=== PATIENT | male | born 1985 | race Caucasian/White ===

== ENCOUNTER → 2021-01-10 | Outpatient (CLI) | payer BC ==
--- NOTE | 2021-01-10 12:09 | CT ---
EXAMINATION TYPE: CT abdomen pelvis wo con DATE OF EXAM: 01/10/2021 HISTORY: Calculus of kidney and ureter, left greater than right flank pain. CT DLP: 1158.3 mGycm. Automated Exposure Control for Dose Reduction was Utilized. TECHNIQUE: CT scan of the abdomen and pelvis is performed without oral or IV contrast. COMPARISON: Prior CT March 29, 2015 FINDINGS: Within the limitations of a non-contrast study, the following observations are made. LUNG BASES: Posterior medial right basilar focal linear scarring is redemonstrated. LIVER/GB: Liver is diffusely low dense consistent with diffuse fatty infiltration. PANCREAS: No significant abnormality is seen. SPLEEN: No significant abnormality is seen. ADRENALS: No significant abnormality is seen. KIDNEYS: There are 3 lower pole right renal calculi measuring up to 10 mm in size coronal image 56. L ower pole calculi within the lower pole collecting system. Mild pelvic fullness without hydroureter o r obstructing calculus. There are approximately 5 left renal calculi measuring up to 5 mm in size coronal image 65. There is mild left-sided hydronephrosis due to obstructing 7 mm calculus distal left ureter coronal image 63. There is simple appearing 3.7 cm thin-walled cyst medially midpole level left kidney increased in siz e from prior. No intraluminal calculus in the poorly distended bladder BOWEL: Slightly redundant sigmoid colon. Normal-appearing appendix from the cecum. GENITAL ORGANS: No gross abnormality seen. LYMPH NODES: No greater than 1cm abdominal or pelvic lymph nodes are appreciated. OSSEOUS STRUCTURES: No significant abnormality is seen. OTHER: Moderate size fat-containing umbilical hernia is redemonstrated. Stable small to moderate-size d fat-containing left inguinal hernia. IMPRESSION: 1. Bilateral nephrolithiasis redemonstrated. Interval increase in number of calculi from 2016 CT. The re is mild left-sided hydronephrosis currently due to 7 mm obstructing distal ureter calculus. There is now 10 mm calculus in the right kidney lower pole collecting system. Advised urology referral to [facility] evaluate and treat.
== END | disposition home or self-care (01) ==
LOC: RADCTMAIN 11:11
PROVIDERS: ATTEND Family Medicine
DX: N13.2 Hydronephrosis with renal and ureteral calculous obstruction (principal)
CPT/HCPCS: 74176

== ENCOUNTER → 2021-01-14 | Outpatient (CLI) | payer BC ==
[2021-01-14 16:03] LABS: African American GFR (CKD) >90 (>60 ml/min/1.73 sqM); Anion Gap 13 mmol/L; Blood Urea Nitrogen 12 mg/dL (9-20); Calcium 9.8 mg/dL (8.4-10.2); Carbon Dioxide 26 mmol/L (22-30); Chloride 99 mmol/L (98-107); Glucose 93 mg/dL (74-99); Non-African American GFR(CKD) >90 (>60 ml/min/1.73 sqM); Potassium 4.2 mmol/L (3.5-5.1); Sodium 138 mmol/L (137-145)
[2021-01-14 18:28] LABS: Basophils # (A) 0.1 k/uL (0-0.2); Basophils % (A) 1 %; Eosinophils # (A) 0.3 k/uL (0-0.7); Eosinophils % (A) 3 %; HCT 47.2 % (39.0-53.0); Lymphocytes # (A) 2.5 k/uL (1.0-4.8); Lymphocytes % (A) 32 %; MCV 85.3 fL (80.0-100.0); Mean Platelet Volume 6.9; Monocytes # (A) 0.5 k/uL (0-1.0); Monocytes % (A) 6 %; Neutrophils # (A) 4.3 k/uL (1.3-7.7); Neutrophils % (A) 56 %; Platelet Count 316 k/uL (150-450); RBC 5.53 m/uL (4.30-5.90); RDW 13.2 % (11.5-15.5); WBC 7.8 k/uL (3.8-10.6)
== END | disposition home or self-care (01) ==
LOC: LABPAT 14:28
PROVIDERS: ATTEND Urology
DX: Z01.812 Encounter for preprocedural laboratory examination (principal); N20.1 Calculus of ureter; N20.0 Calculus of kidney
CPT/HCPCS: 36415; 80048; 85025

== ENCOUNTER 2021-01-20 09:17 | Day surgery (SDC) | payer BC ==
--- NOTE | 2021-01-19 07:09 | P.GSHP ---
History of Present Illness H&P Date: 01/19/21 Chief Complaint: Flank pain The patient is a 35-year-old white male with a history of urolithiasis. He underwent right ESWL in 2011, and has undergone bilateral ureteroscopy with laser lithotripsy. His calculi are composed of calcium oxalate. He now presents with bilateral flank pain. A CT scan shows mild left hydronephrosis due to a 7 mm left distal ureteral calculus. He also has 5 left renal calculi measuring up to 5 mm, and 3 right renal calculi measuring up to 1 cm. Alternative treatment options were reviewed, and he has elected to undergo ureteroscopic removal of his calculi. His serum calcium level is normal. It does not appear he has undergone a formal metabolic evaluation in the past. - Constitutional Constitutional: Denies chills, Denies fever - Gastrointestinal Gastrointestinal: Reports nausea - Genitourinary (Male) Genitourinary: Reports flank pain, Reports hematuria, Reports kidney stones Past Medical History Past Medical History: Hyperlipidemia Additional Past Medical History / Comment(s): hx kidney stones History of Any Multi-Drug Resistant Organisms: None Reported Additional Past Surgical History / Comment(s): lithitripsy x2, ureteroscopy with laser lithotripsy Past Anesthesia/Blood Transfusion Reactions: No Reported Reaction Past Psychological History: No Psychological Hx Reported Past Alcohol Use History: Occasional Past Drug Use History: None Reported Medications and Allergies Home Medications Medication Instructions Recorded Confirmed Type Hydrocodone/Acetaminophen [Riley 1 - 2 each PO Q4HR PRN #20 tab 09/01/14 Rx 5-325] Tamsulosin HCl [Flomax] 0.4 mg PO DAILY 09/01/14 09/01/14 History Allergies Allergy/AdvReac Type Severity Reaction Status Date / Time No Known Drug Allergies Allergy Unknown Verified 09/01/14 08:11 Surgical - Exam - General well developed, well nourished, no distress - Neck no masses, trachea midline - Respiratory normal respiratory effort - Abdomen Abdomen: soft, tender (Right lower quadrant tenderness), no guarding, no rigid, no rebound - Genitourinary normal penis with no external lesions, testicles non-tender - Psychiatric oriented to time, oriented to person, oriented to place, speech is normal, memory intact Results - Imaging CT scan - abdomen: report reviewed, image reviewed Assessment and Plan (1) Calculus of kidney Status: Acute Code(s): N20.0 - CALCULUS OF KIDNEY SNOMED Code(s): 48635364 (2) Calculus of ureter Status: Acute Code(s): N20.1 - CALCULUS OF URETER SNOMED Code(s): 66742422 (3) Hydronephrosis with renal and ureteral calculous obstruction Status: Acute Code(s): N13.2 - HYDRONEPHROSIS WITH RENAL AND URETERAL CALCULOUS OBSTRUCTION SNOMED Code(s): 469119508 Plan: Cystoscopy, retrograde pyelograms, bilateral ureteroscopy with Holmium laser lithotripsy and possible stone basketing, bilateral ureteral stent insertion. The procedure has been reviewed in detail with the patient, who understands potential risks to include anesthesia, bleeding, infection, and ureteral injury.
[2021-01-19 10:25] VITALS: BMI 34.2
--- NOTE | 2021-01-20 09:45 | XR ---
EXAMINATION TYPE: XR KUB DATE OF EXAM: 01/20/2021 9:37 AM CLINICAL HISTORY: Bilateral kidney stones. TECHNIQUE: Two supine KUB images of the abdomen are obtained. COMPARISON: CT abdomen and pelvis 10 days ago. FINDINGS: Dominant 15 mm calculus right kidney mid to lower pole level redemonstrated and stable in p osition. Smaller bilateral renal calculi less well seen but remain present. Overall nonobstructive bowel gas pattern. Visualized osseous structures are intact. IMPRESSION: As above.
[2021-01-20] MEDS ORDERED: ONDANSETRON 4 MG/2 ML VIAL ONE (10:00)
[2021-01-20] MEDS ORDERED: LACTATED RINGERS 1,000 ML IV ONE ×2 (10:05→12:40)
[2021-01-20] MEDS ORDERED: LIDOCAINE 1% (10MG/ML) FOR IV START INTRADERMA ONE (10:06)
[2021-01-20] MEDS ORDERED: ROCURONIUM 10 MG/ML (5 ML VIAL) IV ONE (11:28)
[2021-01-20] MEDS ORDERED: PHENYLEPHRINE-0.9% NACL SYG 1,000 MCG/10 ML SYRINGE ONE (11:28)
[2021-01-20] MEDS ORDERED: MIDAZOLAM 2 MG/2 ML VIAL ONE (11:28)
[2021-01-20] MEDS ORDERED: .fentaNYL (PF) 50 MCG/ML 2 ML AMP ONE (11:28)
[2021-01-20] MEDS ORDERED: PROPOFOL 10 MG/ML 20 ML VIAL IV ONE (11:28)
[2021-01-20] MEDS ORDERED: HYDROmorphone (PF) 1 MG/ML ONE (11:28)
[2021-01-20] MEDS ORDERED: SUCCINYLCHOLINE CHLORIDE 100 MG/5 ML SYR IV ONE (11:28)
[2021-01-20] MEDS ORDERED: ePHEDrine 50 MG/ML 1 ML AMP ONE (11:28)
[2021-01-20] MEDS ORDERED: IOPAMIDOL-370 50ML BTL IRRIGATION ONE (12:04)
[2021-01-20 14:24] VITALS: TEMP 97.3
--- NOTE | 2021-01-20 15:03 | FL ---
EXAMINATION TYPE: FL urography retrograde DATE OF EXAM: 01/20/2021 COMPARISON: NONE HISTORY: Fluoroscopy time. Fluoroscopy was provided to the referring clinician.
[2021-01-20] MEDS ORDERED: ONDANSETRON 4 MG/2 ML VIAL IVP ONE (15:17)
[2021-01-20 15:38] VITALS: RESP 18
[2021-01-20 16:00] VITALS: BP 137/78; PULSE 78
--- NOTE | 2021-01-22 10:19 | P.OP ---
Date of Procedure: 01/20/21 Preoperative Diagnosis: Left ureteral calculus, bilateral renal calculi Postoperative Diagnosis: Same Procedure(s) Performed: Cystoscopy, left retrograde pyelogram, bilateral ureteroscopy with Holmium laser lithotripsy and stone basketing, bilateral ureteral stent insertion Anesthesia: SYBILA Surgeon: David Roldan Estimated Blood Loss (ml): 10 IV fluids (ml): 1,200 Pathology: other (Stone fragments, some for chemical analysis) Condition: stable Disposition: PACU Indications for Procedure: The patient is a 35-year-old white male with a history of urolithiasis. He underwent right ESWL in 2011, and has undergone bilateral ureteroscopy with laser lithotripsy. His calculi are composed of calcium oxalate. He now presents with bilateral flank pain. A CT scan shows mild left hydronephrosis due to a 7 mm left distal ureteral calculus. He also has 5 left renal calculi measuring up to 5 mm, and 3 right renal calculi measuring up to 1 cm. Alternative treatment options were reviewed, and he has elected to undergo ureteroscopic removal of his calculi. His serum calcium level is normal. It does not appear he has undergone a formal metabolic evaluation in the past. Operative Findings: Left distal ureteral calculus. Small left renal calculi. Large right lower pole renal calculus. All fragmented and basketed. Description of Procedure: The patient was taken to the operating room and placed in the dorsolithotomy position, with legs supported in Stephen stirrups. The external genitalia was prepped and draped sterilely. The 30 lens was used to introduce the 21-Ethiopian Grande cystoscopic sheath through the urethra and into the bladder under direct vision. The prostatic urethra showed evidence of mild lateral lobe enlargement. The bladder was examined in its entirety. Both ureteral orifices were normal anatomic location and configuration, and clear urine effluxed from both. No tumors or foreign bodies were seen. Using a 10-Ethiopian cone-tipped catheter, bilateral retrograde pyelograms were performed. The left distal ureteral calculus was identified. No right ureteral calculi were seen, as the ureter was normal in caliber and course. The Grande semirigid ureteroscope was advanced into the bladder, and the left ureteral orifice was cannulated. the ureteroscope was slowly advanced up to the calculus. The 272 Holmium laser probe was passed through the ureteroscope, and lithotripsy was performed. After fragmenting the calculus, a 1.9-Ethiopian nitinol basket was used to remove the calculus fragments. The ureter was inspected. There was no evidence of ureteral trauma. A Glidewire was passed through the ureteroscope and advanced up to the left renal pelvis. The semirigid ureteroscope was removed, and the mini flexible ureteroscope was passed over the wire, up to the left renal pelvis. Each calyx was examined, and any calculi encountered were fragmented using the Holmium laser. A dusting technique was primarily used, but any residual calculus fragments exceeding 1-2 mm were removed using a 1.9-Ethiopian nitinol basket. Once this was completed, the ureteroscope was removed and the cystoscope was replaced into the bladder. A 0.038 inch Glidewire was passed through the cystoscope. The right ureteral orifice was cannulated, and the Glidewire was advanced up to the renal pelvis. The cystoscope was removed, and an 11/13-Ethiopian ureteral access catheter was passed over the wire, up to the proximal ureter. The flexible ureteroscope was then passed through the ureteral access catheter sheath, up to the right renal pelvis. Each calyx was examined. Several small calculi were identified and dusted using the 272 Holmium laser probe. The largest calculus was identified within a right lower pole calyx. This was dusted, and it became apparent that a portion of the calculus was impacted within a urethral diverticulum. Lithotripsy was continued until the calculus was completely fragmented. Any fragments exceeding 1-2 mm in size were removed using the 1.9-Ethiopian nitinol basket. Fluoroscopy revealed a small amount of residual calculus, though this could not be seen and it is presumed that it may have been embedded within the submucosa. The Glidewire was passed through the ureteral access catheter sheath, which was removed. The Glidewire was backloaded into the cystoscope, which was passed into the bladder. A double-J ureteral stent was placed over the wire. Proper stent position was verified fluoroscopically and endoscopically. A left ureteral stent was then placed in an identical fashion. The bladder was emptied and the cystoscope removed. The patient tolerated the procedure well and was taken to the recovery room in stable condition. [facility] Report: Procedure Acuity: Semi-Urgent Stone Size and Location: 7 mm, left distal ureter. Bilateral renal calculi measuring up to 1 cm. Ureteral Dilation: No Ureteral Access Sheath Used: Yes Stone Sent for Analysis: Yes All Stones/Fragments Were Removed with a Basket: Yes Complications: No Preoperative Antibiotics Given: Yes Stent Placed: Yes If Stent Placed, Was String Left Attached: No If Stent Placed, When is it to be Removed: 1 week Discharge Medications: Toradol, tamsulosin
== END 2021-01-20 16:12 | disposition home or self-care (01) ==
LOC: OR 09:17
PROVIDERS: ATTEND Urology
DX: N13.2 Hydronephrosis with renal and ureteral calculous obstruction (principal); E78.5 Hyperlipidemia, unspecified; Z87.442 Personal history of urinary calculi; G47.33 Obstructive sleep apnea (adult) (pediatric); Z79.1 Long term (current) use of non-steroidal anti-inflammatories (NSAID); Z79.899 Other long term (current) drug therapy
CPT/HCPCS: 82365; 74420; 74018; 52356; C2625; C1758; C1769; J2250; J2405; J3010; J1170; J2370; J0330; J2704; Q9967

== ENCOUNTER → 2021-06-20 | Outpatient (CLI) | payer BC ==
--- NOTE | 2021-06-21 10:16 | US ---
EXAMINATION TYPE: US kidneys/renal and bladder DATE OF EXAM: 06/20/2021 COMPARISON: CT 01/10/2021 CLINICAL HISTORY: 36-year-old male N20.0 CALCULUS OF [place]LEY KIDNEYS, N13.2 HYDRONEPHROSIS. TECHNIQUE: Multiple sonographic images of the kidneys and bladder are obtained. FINDINGS: EXAM MEASUREMENTS: Right Kidney: 14.8 x 5.6 x 5.8 cm Left Kidney: 13.3 x 4.9 x 6.6 cm Right Kidney: lower pole echogenic focus = 1.1 cm. No hydronephrosis. Left Kidney: No hydronephrosis or masses seen Bladder: anechoic, partially distended Bilateral Jets not seen Incidental finding = Enlarged spleen = 14.9 cm. Also, echogenic liver. IMPRESSION: 1. No hydronephrosis. 2. A 1.1 cm nonobstructive right lower pole renal calculus. 3. Incidental mild splenomegaly at 14.9 cm. Also, incidental hepatic steatosis. Correlate with LFTs, lipid profile, and patient risk factors.
== END | disposition home or self-care (01) ==
LOC: RADUSWWP 16:20
PROVIDERS: ATTEND Urology
DX: N20.0 Calculus of kidney (principal); K76.0 Fatty (change of) liver, not elsewhere classified; R16.1 Splenomegaly, not elsewhere classified
CPT/HCPCS: 76770

== ENCOUNTER → 2021-08-09 | Outpatient (CLI) | payer BC ==
[2021-08-10 17:22] LABS: Anion Gap 16.3 mmol/L (10.00-18.00); Carbon Dioxide 22.7 mmol/L (20.0-27.5); Potassium 3.9 mmol/L (3.5-5.5)
== END | disposition home or self-care (01) ==
LOC: LABWHC1 12:38
PROVIDERS: ATTEND Urology
DX: R82.994 Hypercalciuria (principal)
CPT/HCPCS: 36415; 80051

== ENCOUNTER → 2021-11-24 | Outpatient (CLI) | payer BC ==
--- NOTE | 2021-11-24 15:04 | US ---
EXAMINATION TYPE: US abdomen limited DATE OF EXAM: 11/24/2021 COMPARISON: CT 2020 CLINICAL HISTORY: K42.9 umbilical hernia. Umbilical hernia. Focal palpable abnormality. Assess for hernia at location of: Umbilicus Scanned just left to the umbilicus at patient's area of concern. There appears to be a defect measuring 1.6 cm in transverse. There was very little movement with vals alexander maneuver, limited. IMPRESSION: Confirmation of a narrow neck fat-containing umbilical lower periumbilical hernia in the area of clinical concern just left of umbilicus. Findings correlate with CT axial image 93 and coron al image 9. Real-time scanning was performed by the animal assistant utilizing Valsalva and additional dynamic maneuve rs to assess for hernia.
== END | disposition home or self-care (01) ==
LOC: RADUSWWP 13:24
PROVIDERS: ATTEND Family Medicine
DX: K42.9 Umbilical hernia without obstruction or gangrene (principal)
CPT/HCPCS: 76705

== ENCOUNTER → 2023-12-13 | Outpatient (CLI) | payer BC ==
--- NOTE | 2023-12-13 08:57 | CT ---
EXAMINATION TYPE: CT heart w calcium score DATE OF EXAM: 12/13/2023 COMPARISON: None CLINICAL INDICATION: Male, 38 years old with history of Z82.49 FAMILY HX OF ISCHEM HEART DIS AND OTH DIS O; PHH, famly history of heart disease TECHNIQUE: Prospective Gating was used. Slice thickness: 3mm. Density threshold (HU): 130, Pixel threshold: 3, Algorithm: discrete. CT DLP: 174.[address] CTDI: mGy Automated exposure control for dose reduction was used. FINDINGS: CT CALCIUM SCORING Coronary calcium is a marker for plaque (fatty deposits) in a blood vessel or atherosclerosis (harden ing of the arteries). The presence and amount of calcium detected in a coronary artery by the CT sca n, indicates the presence and amount of atherosclerotic plaque. These calcium deposits appear years before the development of heart disease symptoms such as chest pain and shortness of breath. A calcium score is computed for each of the coronary arteries based upon the volume and density of th e calcium deposits. This can be referred to as your calcified plaque burden. It does not correspond directly to the percentage of narrowing in the artery but does correlate with the severity of the un derlying coronary atherosclerosis. RESULTS Region: LM Calcium Score ([place]): 0 Volume (mm3): 0 Mass (g): 0 Region: RCA Calcium Score ([place]): 0 Volume (mm3): 0 Mass (g): 0 Region: LAD Calcium Score ([place]): 0 Volume (mm3): 0 Mass (g): 0 Region: CX Calcium Score ([place]): 0 Volume (mm3): 0 Mass (g): 0 Region: PDA Calcium Score ([place]): 0 Volume (mm3): 0 Mass (g): 0 Total: Calcium Score ([place]): 0 Volume (mm3): 0 Mass (g): 0 TOTAL CALCIUM SCORE: 0 Trace of pericardial fluid. Heart size mildly prominent. Osseous structures grossly intact. Lung fiel ds are clear. IMPRESSION: Calcium Score: 0 Implication: No identifiable plaque Risk of Coronary Artery Disease: Very low, generally less than 5% risk of coronary artery disease. CALCIUM SCORE IMPLICATION RISK OF C ORONARY ARTERY DISEASE 0 No identifiable plaque Very low, generally less than 5% 1-10 Minimal identifiable plaque Very unlikely, less than 10% 11-100 Definite, at least mild atherosclerotic plaque Mild or m inimal coronary narrowings likely 101-400 Definite, at least moderate atherosclerotic plaque Mild coronary ar alejandra disease highly likely, significant narrowing possible 401 or Higher Extensive atherosclerotic plaque High lik elihood of at least one significant coronary narrowing [facility], , 12/13/2023 8:54 AM
== END | disposition home or self-care (01) ==
LOC: RADCTMAIN 06:26
PROVIDERS: ATTEND Family Medicine
DX: I25.10 Atherosclerotic heart disease of native coronary artery without angina pectoris (principal); Z82.49 Family history of ischemic heart disease and other diseases of the circulatory system
CPT/HCPCS: 75571

== ENCOUNTER → 2023-12-26 | Outpatient (CLI) | payer BC ==
--- NOTE | 2023-12-26 13:03 | XR ---
EXAMINATION TYPE: XR KUB DATE OF EXAM: 12/26/2023 10:52 AM COMPARISON: 03/28/2021 CLINICAL INDICATION: Male, 38 years old with history of N20.0 CALCULUS OF KIDNEY; TECHNIQUE: One radiographic view of the abdomen was obtained. FINDINGS: The bowel gas pattern is nonspecific without dilated loops of small or large bowel. . Fecal material and gas are demonstrated throughout the colon and rectum. There is no evidence for organomegaly or pneumoperitoneum. The osseous structures are intact. Bilat eral renal calculi measuring up to 9 mm on the right and 12 mm on the left. IMPRESSION: 1. Bilateral renal calculi projecting over the kidneys. 2. Nonspecific bowel gas pattern without radiographic evidence for acute process. [facility], , 12/26/2023 1:01 PM
== END | disposition home or self-care (01) ==
LOC: RADXRMAIN 10:43
PROVIDERS: ATTEND Urology
DX: N20.0 Calculus of kidney (principal)
CPT/HCPCS: 74018